=== PATIENT | female | born 1975 | race Caucasian/White ===

== ENCOUNTER 2019-01-03 20:38 | Emergency (ER) | payer BC ==
[~2019-01-03] VITALS: Ht 167.6 cm; Wt 69.9 kg
[2019-01-03 20:50] VITALS: Ht 167.6 cm; Wt 69.9 kg
[2019-01-03 22:51] VITALS: BP 134/86
== END 2019-01-03 22:51 | disposition home or self-care (01) ==
LOC: ED 20:38
DX: S30.1XXA Contusion of abdominal wall, initial encounter (principal); S60.221A Contusion of right hand, initial encounter; S40.012A Contusion of left shoulder, initial encounter; Y04.8XXA Assault by other bodily force, initial encounter; Y93.89 Activity, other specified; Y92.89 Other specified places as the place of occurrence of the external cause; Y99.8 Other external cause status
CPT/HCPCS: J1885